=== PATIENT | male | born 1955 | race Caucasian/White ===

== ENCOUNTER 2017-08-21 12:18 | Outpatient (CLI) | payer OTHER ==
[2017-08-21 12:54] LABS: #Basophils 0.1 thou/uL (0.0-0.2); #Eosinphils 0.1 thou/uL (0.0-0.7); #Lymphocytes 1.8 thou/uL (1.20-3.40); #Monocytes 0.5 thou/uL (0.11-0.59); %Basophils 0.9 % (0.0-1.0); %Lymphocytes 27.6 % (21.0-51.0); %Monocytes 8.1 % (0.0-10.0); Hematocrit 43.9 % (42.0-52.0); Mean Platelet Volume 6.6 fL (7.4-10.4); Red Blood Cell (RBC) Count 4.74 mill/uL (4.70-6.10); White Blood Cell (WBC) Count 6.5 thou/uL (4.8-10.8)
[2017-08-21 13:12] LABS: Anion Gap 10 mmol/L (10-20); BUN (Urea Nitrogen) 16 mg/dL (8.4-25.7); Calc. Creatinine Clearance 0 mL/min (70-130); Calcium 9.4 mg/dL (7.8-10.44); Carbon Dioxide 30 mmol/L (22-29); Chloride 108 mmol/L (98-107); Estimated GFR-MDRD 77
--- NOTE | 2017-08-21 18:02 | EKG ---
Test Reason : Blood Pressure : / mmHG Vent. Rate : 058 BPM Atrial Rate : 058 BPM P-R Int : 128 ms QRS Dur : 092 ms QT Int : 436 ms P-R-T Axes : -11 040 032 degrees QTc Int : 428 ms Sinus bradycardia with Premature atrial complexes some low atrial or junctional beats also seen No previous ECGs available Confirmed by DR. Antonio RAMIREZ ([id number]) on 08/21/2017 6:01:48 PM Referred By: SHAJI Confirmed By:DR. Antonio RAMIREZ
== END 2017-08-21 12:19 | disposition home or self-care (01) ==
LOC: LABBT 12:18
PROVIDERS: ATTEND Specialist
DX: Z01.818 Encounter for other preprocedural examination (principal); K42.9 Umbilical hernia without obstruction or gangrene
CPT/HCPCS: 80048; 85025; 93005; 93010

== ENCOUNTER 2017-08-22 08:13 | Day surgery (SDC) | payer OTHER ==
--- NOTE | 2017-08-17 11:38 | HP ---
HISTORY OF PRESENT ILLNESS: Woody peterson is a 62-year-old male patient, business project analyst for a [employer] with an umbilical hernia for more than four years, becoming bothersome recently when he cannot re duce it. He has been incarcerated for a week. He has been trying to reduce it. It is slightly red around it. He is followed by Dr. Domonique Burnham, Internal Medicine. The patient has not had any nause a, vomiting or abdominal distention. There has been no imaging. He is on Xarelto for history of rec urrent DVT and PE. He has been evaluated for this and there is no genetic predisposition, but due to his recurrence, he continues on the Xarelto. I have offered to repair this tomorrow, but he has fam anay in town for [place]. We will plan this next week and we will send him on Keflex 500 t.i.d. for a week. Risks of infection, bleeding, reoperation discussed, he consents. ALLERGIES: None. TOBACCO: None. ALCOHOL: Rarely. MEDICATIONS: Xarelto 20 mg a day, vitamin B, vitamin D supplements, Protonix 80 mg a day, Prozac 20 mg a day. PAST SURGICAL HISTORY: Inguinal hernia repairs x2. He has esophageal stage 2 cancer, undergoing maryam moradiation therapy Glenn Nesbitt, eventual gastro-esophagectomy with esophagogastrostomy anastomosis and surveillance without evidence of disease and he has been released from surveillance. Incisional hernia repair in 12/2012, meniscectomy of the knee in 2007 and 2010. SOCIAL HISTORY: The patient is . PAST MEDICAL HISTORY: Past history of DVT and PE x2 on chronic anticoagulation. Workup negative for hereditary predisposition or hypercoagulable state. REVIEW OF SYSTEMS: Ten point noncontributory. He is up to date on his colonoscopies, Having one ear lier this year. PHYSICAL EXAMINATION: VITAL SIGNS: 267 pounds, 6 foot 3, 150/84, 55, 98.6 degrees. HEAD, EARS, EYES, NOSE AND THROAT: Unremarkable. LUNGS: Clear to auscultation. CARDIAC: Regular rate and rhythm without murmur or gallop. ABDOMEN: Soft, nontender. Umbilical hernia, incarcerated. I cannot reduce it. Abdomen nondistende d, non-tympanitic. Chevron incision upper abdomen without hernia. EXTREMITIES: Unremarkable. ASSESSMENT AND PLAN: Incarcerated umbilical hernia. The patient declines repair tomorrow. He will hold his Xarelto, Sunday and Sunday next week. Plan, umbilical hernia repair, probably without mesh on Sunday. Risk of infection, bleeding, reoperation, recurrence have been discussed. He consent s. He will resume his Xarelto Sunday postoperatively.
[2017-08-21 12:45] VITALS: BMI 32.5
[2017-08-22] MEDS ORDERED: Ketorolac Tromethamine 30 MG/ML VIAL ONE (08:38)
[2017-08-22] MEDS ORDERED: CEFAZOLIN/Water 2 GM/20 ML SYRINGE ONE (08:38)
[2017-08-22] MEDS ORDERED: Bupivacaine/Epinephrine 0.25% 30 ML VIAL ONE (08:44)
[2017-08-22] MEDS ORDERED: Lidocaine 2% PF 5 ML VIAL ONE (08:45)
[2017-08-22] MEDS ORDERED: Promethazine HCl 25 MG/ML VIAL ONE (09:16)
[2017-08-22] MEDS ORDERED: Midazolam HCl 2 mg/2 ml Vial ONE (09:16)
[2017-08-22] MEDS ORDERED: Fentanyl 100 MCG/2 ML VIAL ONE (09:16)
--- NOTE | 2017-08-22 11:03 | OP ---
DATE OF PROCEDURE: 08/22/2017 PREOPERATIVE DIAGNOSES: Incarcerated umbilical hernia with omentum recently treated for cellulitis a nd improved with oral antibiotics. POSTOPERATIVE DIAGNOSES: Incarcerated umbilical hernia with omentum recently treated for cellulitis and improved with oral antibiotics with small defect. PROCEDURE: Incarcerated umbilical hernia repair without mesh and excision of incarcerated omentum an d preperitoneal fat. SURGEON: Dr. Preet Mojica. ANESTHESIA: General. Local 0.25% Marcaine with epinephrine, 30 mL, mixed with 2% Xylocaine, 10 mL. PROCEDURE IN DETAIL: Patient taken to the operating room where under general anesthesia, abdomen was clipped of hair, prepared with ChloraPrep, draped in routine fashion. Local anesthetic infiltrated into skin and subcutaneous tissue about the operative site for postoperative pain control. Infraumbi lical incision made and carried down through the skin and subcutaneous tissue. Umbilical hernia cont ents transected with the cautery. This consisted of fatty tissue. The necrotic omentum and preperit navas fat adherent to the umbilicus was shaved with Aurora. Umbilicus was not devascularized. Fascial defects identified. Good hemostasis obtained and fascial defect closed [id number] type fashion with interrupted sutures of 0 PDS pop offs. Umbilicus fastened to the fascia with 3-0 Monocryl and subcutaneous tissues approximated with continuous suture of 3-0 Monocryl, skin with continuous subcut icular suture of 4-0 Monocryl and DermaGlue applied. The patient tolerated the procedure well.
[2017-08-22] MEDS ORDERED: Lidocaine 1% PF 5 ML VIAL ONE (16:20)
[2017-08-22] MEDS ORDERED: PHENYLEPHRINE-NS 100 MCG/ML 10 ML SYRINGE ONE (16:20)
[2017-08-22] MEDS ORDERED: Ondansetron HCl/PF 4 MG/2 ML Vial ONE (16:20)
[2017-08-22] MEDS ORDERED: Propofol 200 MG/20 ML VIAL ONE (16:20)
[2017-08-22] MEDS ORDERED: ePHEDrine/0.9% NaCl/PF SYRINGE 50 mg/10 ml ONE (16:20)
[2017-08-22] MEDS ORDERED: Dexamethasone 20 MG/5 ML VIAL ONE (16:20)
[2017-08-22] MEDS ORDERED: Glycopyrrolate 0.2 MG/ML 5 ML SYRINGE ONE (16:20)
== END 2017-08-22 12:25 | disposition home or self-care (01) ==
LOC: SDC 08:13
PROVIDERS: ATTEND Specialist
PROC: 0WQF0ZZ Repair Abdominal Wall, Open Approach (ICD-10-PCS; principal; 2017-08-22)
DX: K42.0 Umbilical hernia with obstruction, without gangrene (principal); G43.909 Migraine, unspecified, not intractable, without status migrainosus; I10 Essential (primary) hypertension; F32.9 Major depressive disorder, single episode, unspecified; F41.9 Anxiety disorder, unspecified; G47.30 Sleep apnea, unspecified; E66.9 Obesity, unspecified; Z68.32 Body mass index [BMI] 32.0-32.9, adult; Z86.711 Personal history of pulmonary embolism; Z86.718 Personal history of other venous thrombosis and embolism; Z85.01 Personal history of malignant neoplasm of esophagus; Z92.21 Personal history of antineoplastic chemotherapy; Z92.3 Personal history of irradiation; Z98.890 Other specified postprocedural states; Z79.01 Long term (current) use of anticoagulants; Z99.89 Dependence on other enabling machines and devices
CPT/HCPCS: J0131; J1100; J1885; J2001; J2250; J2405; J2550; J2704; J3010

== ENCOUNTER 2022-05-17 12:06 | Outpatient (CLI) | payer OTHER ==
[2022-05-17 13:46] LABS: #Eosinphils 0.2 10x3/uL (0.0-0.5); #Monocytes 0.5 10x3/uL (0.0-1.1); %Basophils 0.5 % (0.0-2.0); %Eosinophils 2.6 % (0.0-6.0); %Monocytes 7.9 % (0.0-10.0); %Neutrophils 68.8 % (40.0-75.0); Hemoglobin 12.5 g/dL (13.5-17.5); Mean Corpuscular HGB CONC 31.4 g/dL (32.0-36.0); Mean Corpuscular Hemoglobin 26.3 pg (27.0-33.0); Mean Corpuscular Volume 83.6 fl (81.2-95.1); Mean Platelet Volume 9.4 fl (7.4-10.4); Platelet Count 248 10x3/uL (150-450); RBC Distribution Width 16.4 % (11.5-14.5); Red Blood Cell (RBC) Count 4.76 10x6/uL (4.32-5.72); White Blood Cell (WBC) Count 5.8 10x3/uL (3.5-10.5)
[2022-05-17 14:03] LABS: Anion Gap 12 mmol/L (10-20); BUN (Urea Nitrogen) 21 mg/dL (8.4-25.7); Calc. Creatinine Clearance 0 mL/min (70-130); Calcium 8.9 mg/dL (7.8-10.44); Carbon Dioxide 24 mmol/L (23-31); Chloride 109 mmol/L (98-107); Estimated GFR 69; Glucose 80 mg/dL (80-115); Potassium 4.4 mmol/L (3.5-5.1); Sodium 141 mmol/L (136-145)
== END 2022-05-17 12:07 | disposition home or self-care (01) ==
LOC: LABBT 12:06
PROVIDERS: ATTEND Surgery
DX: Z01.812 Encounter for preprocedural laboratory examination (principal); Z20.822 Contact with and (suspected) exposure to COVID-19
CPT/HCPCS: 80048; 85025; 87811